=== PATIENT | female | born 1990 | race Caucasian/White ===

== ENCOUNTER 2019-07-24 16:12 | Outpatient (CLI) | payer OTHER ==
[2019-07-24 16:56] LABS: eGFR (Non-African) > 60
[2019-07-24 17:14] LABS: BASOPHILS % 0.5 % (0.0-1.5); NEUTROPHILS # 6.1 # k/uL (1.4-7.7)
== END 2019-07-24 16:14 ==
LOC: LAB 16:12
PROVIDERS: ATTEND Physician Assistant
DX: Z79.899 Other long term (current) drug therapy (principal)
CPT/HCPCS: 36415; 80053; 85025; 86703; 86803; 87340

== ENCOUNTER 2019-09-15 16:39 | Outpatient (CLI) | payer OTHER ==
--- NOTE | 2019-09-15 19:07 | Diagnostic Imaging Report ---
PATIENT MR#: [id number] PATIENT PATIENT NAME: JANAK MENDENHALL DATE OF : 1990 REFERRING PHYSICIAN: SHANITA SMITH EXAM DATE: 09/15/2019 ACCESSION NUMBER: [id number] EXAM DESCRIPTION: ANKLE 3 VIEWS OR MORE CLINICAL HISTORY: RT PERONEAL TENDONITIS, RT LATERAL ANKLE SPRAIN, CHRONIC COMPARISON: No study for comparison is available at the time of interpretation. TECHNIQUE: DX right ankle, 3 views Osseous structures: The osseous structures are normal with no evidence of fracture or dislocation. Th ere is no osseous lesion or periosteal reaction. Plantar calcaneal spur at the plantar fascia insertion, which may pred ispose to plantar fasciitis. Joint spaces: The bones are well aligned. No articular surface abnormality is noted. Soft tissues: There is normal appearance of the soft tissues with no radiopaque foreign body seen. IMPRESSION: 1. No evidence of lateral ankle fracture or ankle mortise widening. 2. Plantar calcaneal spur at the plantar fascia insertion, which may predispose to plantar fasciitis. Read by: Dr. Julian Kingston Transcribed by: Julian Kingston Transcribed Date: 09/15/2019 7:06:46 PM Electronically signed by: Dr. Julian Kingston Date signed: 09/15/2019 7:06:46 PM
== END 2019-09-15 16:49 ==
LOC: RAD 16:39
PROVIDERS: ATTEND Podiatrist Foot & Ankle Surgery
DX: S93.401A Sprain of unspecified ligament of right ankle, initial encounter (principal); M76.71 Peroneal tendinitis, right leg; X58.XXXA Exposure to other specified factors, initial encounter
CPT/HCPCS: 73610